=== PATIENT | female | born 1985 | race African-American/Black ===

== ENCOUNTER 2016-11-11 18:37 | Emergency (ER) | payer OTHER ==
[2016-11-11 18:20] LABS: URINE SOURCE CLEAN CATCH
[2016-11-11 18:30] LABS: CULTURE INDICATED? YES; U HYALINE CASTS AUWI 0-2 /[LPF]; URBCS1 AUWI INNUM /[HPF] (0-2); URINE APPEARANCE CLOUDY; URINE BACTERIA AUWI 3+ (NEGATIVE); URINE BILIRUBIN NEG (NEG); URINE BLOOD 3+ (NEG); URINE COLOR YELLOW; URINE GLUCOSE NEG (NEG); URINE KETONE NEG (NEG); URINE LEUKOCYTE ESTERASE 2+ (NEG); URINE NITRATE NEG (NEG); URINE PROTEIN 1+ (NEG); URINE SPECIFIC GRAVITY 1.021 (1.003-1.035); URINE SQUAMOUS EPITHELIAL CELL NONE SEEN /[HPF]; UWBCS1 AUWI 200-300 (0-5)
== END 2016-11-11 18:56 | disposition home or self-care (01) ==
LOC: CED 18:37
PROVIDERS: Emergency Medicine
DX: R30.0 Dysuria (principal); R31.0 Gross hematuria
CPT/HCPCS: 81003; 84703; 87086; 87088; 87186; 99283

== ENCOUNTER 2016-12-02 17:12 | Emergency (ER) | payer OTHER | END 2016-12-02 17:16 | disposition home or self-care (01) | LOC: CFTX 17:12 | DX: B02.9 Zoster without complications (principal) | CPT/HCPCS: 99282 ==